=== PATIENT | female | born 1975 | race African-American/Black ===

== ENCOUNTER 2016-09-13 18:23 | Inpatient (IN) | payer OTHER ==
--- NOTE | ~2016-09-13 | EKG ---
PATIENT: IESHA CLINTON UNIT #: [id number] Ventricular Rate: 81 BPM Atrial Rate: 81 BPM P-R Interval: 146 ms QRS Duration: 96 ms Q-T Interval: 388 ms QTC Calculation(Bezet): 450 ms P Bernie: 58 degrees Calculated R Bernie: 0 degrees Calculated T Bernie: 7 degrees Diagnosis Line: Normal sinus rhythm Diagnosis Line: Moderate voltage criteria for LVH, may be normal Diagnosis Line: variant Diagnosis Line: Borderline ECG Diagnosis Line: When compared with ECG of 02-MAY-2016 17:02, Diagnosis Line: No significant change was found Diagnosis Line: Confirmed by MARIAN CAMPBELL MD ([id number]) on Diagnosis Line: 09/15/2016 10:42:47 AM INTERPRETING MD: SONU
--- NOTE | ~2016-09-13 | BMI ---
[facility] Nutrition Therapy DATE: 09/16/16 Patient: IESHA CLINTON Physician: ATTPRE Address: [address] [place] [address] Room/Bed: [address] [place] [address], Zip: [place] [address] Admit Date: 09/14/16 Date of : 75 Height: 5 8 Weight: 548 249 HIGH BMI NOTE: DX: 41 Y.O. FEMALE ADMITTED FOR CHF ANTHROPOMETRICS: 5'8", WT: 562# (255 KG), BMI: 85.4 DIET: TRACIE + 1500 KCAL DIET RECOMMENDATIONS: 1. RECOMMEND TO CHANGE CURRENT DIET ORDER TO: HEALTHY HEART + 2200 KCAL RESTRICTION TO PROMOTE GRADUAL WEIGHT LOSS TOWARDS HEALTHY BMI (19.0-25.0) OR +/-10%IBW 2. DO NOT RECOMMEND 1500 KCAL DIET RESTRICTION-TOO RESTRICTIVE RD WILL F/U PER PROTOCOL Respectfully, NICOLASA HANSON MS, RD, LD Food and Nutritional Services [facility] cc: client file
--- NOTE | ~2016-09-13 | CR72 ---
[facility] A Service of [facility] & [facility] RADIOLOGY TEXT RESULTS PATIENT: IESHA CLINTON LOCATION: [facility] [id number] : 75 UNIT #: [id number] AGE: [address]: Chelle Hernandez MD SEX: F ORDER DR: [id number] [facility] [address] [facility]. [place], [place] [address] [id number] MR#: [id number] Acc #: [id number] NAME: IESHA CLINTON : 1975 SEX: F STUDY DATE/TIME: 09/13/2016 19:52 UNIT: [facility] ROOM: STUDY DESCRIPTION: CR Chest Single View Portable Attending Physician: Nallely Shrestha M.D. Ordering Physician: Hans Villeda M.D. Primary Care Physician: Chelsie Jones M.D. MEDICAL IMAGING REPORT This report is preliminary unless electronic signature is present EXAM Portable chest, 09/13/16. HISTORY Chest pain, shortness of breath and congestive heart failure for 1 week. Benign essential hypertension. FINDINGS There is mild cardiac enlargement. The lungs are clear. Pulmonary vascularity is within normal limits. There are no pleural effusions. IMPRESSION Mild cardiac enlargement. No active pulmonary disease. Dictated by... Danny Pelletier M.D. THIS IS AN ELECTRONICALLY VERIFIED REPORT Danny Pelletier M.D. at 09/16/2016 8:27 AM RANJANA/radha TD: 09/14/2016 00:09 JOB #: [id number] MEDICAL IMAGING REPORT Page 1 of 1 COPY
--- NOTE | ~2016-09-13 | HP ---
Unit #: [id number] #: [id number] Patient: IESHA CLINTON [id number] [address] [address] [id number] I MR#: [id number] NAME: IESHA CLINTON ROOM: 77712 Age: 41 Sex: F Admission Date: 09/14/2016 : 1975 Attending Physician: Chelle Hernandez M.D. Primary Care Physician: Chelsie Jones M.D. HISTORY AND PHYSICAL ADDENDUM ALLERGIES Oxycodone. HOME MEDICATIONS 1. Hydralazine 25 mg p.o. twice a day. 2. Bumex 2 mg p.o. three times a day. 3. Coreg 3.125 mg p.o. twice a day. 4. Losartan 25 mg p.o. at bedtime. 5. Aldactone 25 mg p.o. daily. 6. Albuterol inhaler every four to six hours as needed for shortness of breath. 7. Ceftin 500 mg p.o. twice a day. 8. Symbicort two puffs inhalation twice daily. 9. ProAir MDI two puffs every six hours as needed for shortness of air. 10. Combivent inhaler every six hours as needed for shortness of air. 11. Prednisone 40 mg p.o. daily for seven days. 12. Tylenol 650 mg p.o. every six hours as needed for pain. Dictated by Hien Lawson APRN for Kevin Morris/neeraj TD: 09/14/2016 13:25 JOB #: [id number] HISTORY AND PHYSICAL Page 1 of 1 X X HISTORY AND PHYSICAL
--- NOTE | ~2016-09-13 | HP ---
Unit #: [id number] #: [id number] Patient: IESHA CLINTON [id number] [address] [place], [place] [address] [id number] I MR#: [id number] NAME: IESHA CLINTON ROOM: 24058 Age: 41 Sex: F Admission Date: 09/14/2016 : 1975 Attending Physician: Chelle Hernandez M.D. Primary Care Physician: Chelsie Jones M.D. HISTORY AND PHYSICAL CHIEF COMPLAINT Increased lower extremity swelling with shortness of breath and 32 pound weight gain. HISTORY OF PRESENT ILLNESS This 41-year-old -[place] female well known to Dr. Damian Trent with a longstanding history of morbid obesity and chronic bilateral lower extremity lymphedema with immobility syndrome. She also has a history of chronic diastolic congestive heart failure with an EF 45 to 50% per February 2016 echo, hypertension, hyperlipidemia, obstructive sleep apnea, asthma, arthritis and a history of pulmonary embolism. She presented to the ER with some dyspnea on exertion and a reported 32 pound weight gain in the last month. In addition, she had some PND, wheezing, orthopnea. The patient denies abdominal swelling. The patient denies recent illness or fevers. She states she has adhered to her medication regimen and dietary restrictions. She has been working with home health and doing physical therapy at home. She states she has been unable to wrap her legs as ordered since March due to not being able to obtain the supplies. 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 Chest x-ray in the ER showed mild cardiomegaly but no pulmonary vascular congestion or pleural effusions. She had a cardiac cath in December 2015 at [facility] as part of evaluation for gastric surgery. The cardiac cath was normal. PAST MEDICAL HISTORY 1. Chronic bilateral lower extremity lymphedema. 2. Morbid obesity. 3. Chronic diastolic congestive heart failure with EF 45 to 50% per echo, 02/2016. 4. Hypertension. 5. Hyperlipidemia. 6. Obstructive sleep apnea. 7. History of PE. 8. GERD. 9. Asthma. 10. Osteoarthritis. 11. Cardiac cath 12/20/2015 showed left main normal, LAD large and normal, left circumflex normal, RCA normal, LVEF 55 to 60%. 12. Immobility syndrome. PAST SURGICAL HISTORY 1. . 2. Hysterectomy. Unit #: [id number] #: [id number] Patient: IESHA CLINTON SOCIAL HISTORY The patient lives with her . She has been undergoing home health physical therapy. She normally wraps her legs to help with her lymphedema but has been unable to do so due to inability to obtain proper equipment since March 2016. 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 She denies tobacco use. She denies alcohol or illicit drug use. FAMILY HISTORY Father at age 49 from a pulmonary embolus. Mother had a history of diabetes and hypertension and her sister had a history of hypertension. REVIEW OF SYSTEMS Positive for bilateral lower extremity edema. Positive for shortness of air, dyspnea on exertion, wheezing, orthopnea, PND. The patient denies abdominal swelling. The patient reports bilateral chest discomfort intermittently. The patient denies recent illness, fevers, chills, body aches, nausea, vomiting or diarrhea. Otherwise, negative except for what was stated in the HPI. PHYSICAL EXAMINATION GENERAL APPEARANCE: Morbidly obese -[place] female with limited mobility in no acute distress. VITAL SIGNS: Temperature 98.1. Heart rate 65. Respiratory rate 17. Blood pressure 144/81. Height 68 inches. Weight 261.2 kg. HEENT: Normocephalic and atraumatic. No xanthelasma. Pupils equal, round and reactive to light. LUNGS: Clear to auscultation bilaterally with diminished breath sounds in the bases. Nonlabored respirations. HEART: S1 and S2. Regular rate and rhythm. No obvious murmurs, rubs or gallops. ABDOMEN: Positive bowel sounds. Nondistended and nontender. EXTREMITIES: Legs with multiple skin folds. Lymphedema is present on bilateral lower extremities. Pulses 1+. No cyanosis. DIAGNOSTIC STUDIES LABORATORY: Sodium 136, potassium 3.7, chloride 97, BUN 13, creatinine 0.9, glucose 127, magnesium 1.8. Hemoglobin 11.3, hematocrit 35.2, WBC count 8.9, platelets 263. AST 16, ALT 15, alkaline phosphatase 89. Point of care troponin less than 0.05 and BNP 14. IMAGING: Chest x-ray revealed mild cardiomegaly. No PVC or pleural effusions seen. CARDIOVASCULAR: EKG reveals sinus rhythm with a ventricular rate of 84 and nonspecific T wave abnormalities. ASSESSMENT 1. Acute fluid overload. 2. Acute on chronic systolic and diastolic heart failure; EF 45 to 50% per echo 02/2016. 3. Chronic bilateral lower extremity lymphedema. 4. Hypertension. 5. Hyperlipidemia. 6. Morbid obesity. 7. Obstructive sleep apnea. 8. Asthma. 9. Immobility syndrome. Unit #: [id number] #: [id number] Patient: IESHA CLINTON 10. Cardiac cath, 12/20/2015, with normal coronaries. 11. Hypokalemia. PLAN 1. Continue diuresis with Bumex drip. 2. Optimize medications. Restart home medications. 3. Replace potassium. 4. Strict I and O, daily weight, 1200 mL fluid restriction, low sodium and low calorie 1500 mg diet. 5. BMP and CBC in a.m. 6. She is being worked up for weight loss surgery. 7. Her last echo was done February 2016 with an EF of 45 to 50%. We will not repeat echo at this time. Dictated by Hien Lawson APRN for Kevin Morris TD: 09/14/2016 12:47 JOB #: [id number] HISTORY AND PHYSICAL Page 1 of 1 X X HISTORY AND PHYSICAL
--- NOTE | ~2016-09-13 | DS ---
Unit #: [id number] #: [id number] Patient: IESHA CLINTON [id number] [address] [address] [id number] I MR#: [id number] NAME: IESHA CLINTON ROOM: 578 Age: 41 Sex: F Admission Date: 09/14/2016 : 1975 Discharge Date: 09/16/2016 Attending Physician: Chelle Hernandez M.D. Primary Care Physician: Chelsie Jones M.D. DISCHARGE SUMMARY DISCHARGE DIAGNOSES 1. Acute fluid overload, improved to acute on chronic systolic/diastolic congestive heart failure with ejection fraction 45% to 50% per echocardiogram, February 2016, compensated. 2. Chronic bilateral lower extremity lymph edema. 3. Hypertension. 4. Hyperlipidemia. 5. Morbid obesity. 6. Obstructive sleep apnea. 7. Asthma. 8. Immobility syndrome. DISCHARGE MEDICATIONS 1. Albuterol inhaler q.4-6 hours as needed. 2. Combivent inhaler q.6 hours as needed for shortness of breath. 3. Symbicort inhaler two puffs twice a day. 4. Prednisone 40 mg p.o. daily. 5. Tylenol 650 mg p.o. every six hours as needed for pain. 6. Coreg 6.25 mg p.o. twice a day. 7. Bumex 2 mg p.o. three times a day. 8. Losartan 25 mg p.o. twice a day. 9. Aldactone 25 mg p.o. daily. HISTORY OF PRESENT ILLNESS This is a 41-year-old -[place] female well known to Dr. Damian Trent with a long-standing history of morbid obesity and chronic bilateral extremity lymph edema with immobility syndrome. She also has a history of chronic diastolic congestive heart failure with an EF 45% to 50% per February 2016 echo, hypertension, hyperlipidemia, obstructive sleep apnea, asthma, arthritis, and history of pulmonary embolism. She presented to the ER with dyspnea on exertion and a reported 32-pound weight gain in one month. She reported PND, wheezing, and orthopnea. Chest x-ray in the ER showed mild cardiomyopathy but no pulmonary vascular congestion or pleural effusions. BNP was 14. She was started on a Bumex drip at 1 mg per hour with good urine output response. The Bumex drip was continued into the next day and she continued to have good urine output. Today, her weight is down 12 kg on the Bumex drip. Her fluid status in the last 24 hours is negative 6 L. She has decreased swelling in her lower extremities. She feels much better and wants to go home. She is stable for discharge and will be discharged home. PHYSICAL EXAMINATION VITAL SIGNS: Temperature 98.9, heart rate 73, respiratory rate 18, blood pressure 116/63. Unit #: [id number] #: [id number] Patient: IESHA CLINTON GENERAL: Alert and oriented x3. A 41-year-old -[place] female abed in no acute distress. HEART: S1, S2. Regular rate and rhythm. Distant heart tones. LUNGS: Clear, diminished in bases. ABDOMEN: Soft, nontender, nondistended. EXTREMITIES: Lower extremity edema but significantly decreased. Pulses are palpable. No cyanosis. DIAGNOSTIC STUDIES LABORATORY: Sodium 142, potassium 4.4, chloride 95, BUN 24, creatinine 0.9, glucose 92. Hemoglobin 10.1, hematocrit 31.7, white blood cell count 7.9, platelets 236,000. CARDIOVASCULAR: Telemetry reveals normal sinus rhythm with ventricular rate of 73. DISCHARGE INSTRUCTIONS 1. The patient will be discharged home today. She is to keep her scheduled appointment with Dr. Trent which is set for early September. 2. We will discontinue her hydralazine. 3. We will increase her Coreg to 6.25 mg twice a day. 4. We will increase her Cozaar to 25 mg p.o. twice a day. 5. Continue home dose of Bumex 2 mg p.o. three times a day. Dictated by... Hien Lawson APRN for Kevin Rodriguez TD: 09/17/2016 09:53 JOB #: [id number] DISCHARGE SUMMARY Page 1 of 1 X X DISCHARGE SUMMARY
[~2016-09-13 18:23] MED LIST: ALB/IPRATROPIUM/1 E1 INH; ALBUTEROL2.5 MG/0.5 INH; ALDACTONE25 MG PO; ASPIRIN81 M2 PO; ASPIRIN81 MG PO; AUGMENTIN875 MG PO; BACTROBAN15 GM TOP; BACTROBAN22 GM TOP; BENAZEPRIL PO; BUMETANIDE2 M1 PO; BUMEX1 MG PO; BUMEX2 MG PO; CEFTIN500 MG PO; CLEOCIN HCL300 M1 PO; COREG3.125 MG PO; FERROUS GLUCON324 MG PO; HCTZ PO; HYDRALAZINE HCL50 MG PO; IRON325 ( 652 PO; K-DUR20 ME1 PO; K-TAB ER20 MEQ PO; KEFLEX500 MG PO; LASIX20 MG PO; LOPRESSOR PO; LOSARTAN POTASS25 MG PO; LOTENSIN40 MG PO; MACROBID100 MG PO; MOTRIN600 M1 PO; NORVASC PO; NORVASC10 MG PO; PERIDEX480 ML PO; PHENERGAN25 MG/M1 PO; POTASSIUM CHLO20 ME1 PO; POTASSIUM PO; PREDNISONE PO; PROAIR HFA8.5 GM INH; PYRIDIUM100 MG PO; SPIRONOLAC1 TAB 25/2 PO; SYMBICORT INH; TYLENOL325 M1 PO; VICODIN 5/1 TAB 5/50 PO; WALGREENS PHARMACY
[2016-09-13 19:47] LABS: BASOPHIL% 0.5 % (0-2.5); EOSINOPHIL# 0.1 X10e3 (0-0.7); EOSINOPHIL% 1.5 % (0.0-7.0); HEMATOCRIT 35.2 % (35.0-45.0); HEMOGLOBIN 11.3 gm/dL (12.0-16.0); LYMPHOCYTE# 2.6 X10e3 (1.0-3.5); LYMPHOCYTE% 29.1 % (17.0-45.0); MEAN CELL VOLUME 86.5 FL (83-96); MEAN CORPUSCULAR HEMOGLOBIN 27.8 PG (28-34); MEAN CORPUSCULAR HGB CONC 32.1 g/dL (30-36); MEAN PLATELET VOLUME 9.3 FL (6.5-11.5); MONOCYTE# 0.7 X10e3 (0-1.0); MONOCYTE% 7.4 % (3.0-12.0); NEUTROPHIL# 5.5 X10e3 (1.5-7.1); NEUTROPHIL% 61.5 % (40-75); PLATELET COUNT 263 X10e3 (140-420); RED BLOOD COUNT 4.07 X10e (3.90-5.30); RED CELL DISTRIBUTION WIDTH 15.2 % (11.0-15.5); WHITE BLOOD COUNT 8.9 X10e3 (4.0-10.5)
[2016-09-13 19:50] LABS: DIFF IND NO
[2016-09-13 20:19] LABS: ALBUMIN SERUM 3.8 g/dL (3.5-5.0); ALKALINE PHOSPHATASE 89 U/L (32-92); ALT (SGPT) 15 U/L (10-40); AST (SGOT) 16 U/L (10-42); BILIRUBIN,TOTAL 0.4 mg/dL (0.2-2.0); BLOOD UREA NITROGEN 15 mg/dL (9-23); CALCIUM SERUM 8.8 mg/dL (8.4-10.2); CARBON DIOXIDE 30 mmol/L (22-31); CHLORIDE 98 mmol/L (100-111); CREATININE SERUM 1.2 mg/dL (0.6-1.4); GLUCOSE FASTING 104 mg/dL (70-110); POTASSIUM 3.6 mmol/L (3.5-5.1); PROTEIN TOTAL SERUM 8.4 g/dL (6.0-8.3); SODIUM 136 mmol/L (135-145)
[2016-09-13 20:25] LABS: BILIRUBIN, DIRECT <0.1 mg/dL (0.0-0.2); BILIRUBIN,INDIRECT 0.3 mg/dL (0.0-0.9)
[2016-09-13 22:20] LABS: MAGNESIUM 1.8 mg/dL (1.6-3.0); PHOSPHOROUS 3.5 mg/dL (2.5-4.6)
[2016-09-13 22:25] LABS: POC - CKMB 1.1 ng/mL (0.0-7.9); POC - TROPONIN <0.05 ng/mL (<=0.05)
[2016-09-13 22:52] LABS: POC - CKMB <1.0 ng/mL (0.0-7.9); POC - TROPONIN <0.05 ng/mL (<=0.05)
[2016-09-14 07:44] LABS: BUN/CREATININE RATIO 14.44; CALCIUM SERUM 8.3 mg/dL (8.4-10.2); CREATININE SERUM 0.9 mg/dL (0.6-1.4); GLOM FILT RATE Estimated 92.1 mL/min (>60); POTASSIUM 3.7 mmol/L (3.5-5.1)
[2016-09-15 05:40] LABS: HEMATOCRIT 31.7 % (35.0-45.0); HEMOGLOBIN 10.1 gm/dL (12.0-16.0); MEAN CELL VOLUME 86.1 FL (83-96); MEAN CORPUSCULAR HEMOGLOBIN 27.6 PG (28-34); MEAN CORPUSCULAR HGB CONC 32.1 g/dL (30-36); MEAN PLATELET VOLUME 9.9 FL (6.5-11.5); RED BLOOD COUNT 3.67 X10e (3.90-5.30); RED CELL DISTRIBUTION WIDTH 14.9 % (11.0-15.5); WHITE BLOOD COUNT 7.9 X10e3 (4.0-10.5)
[2016-09-15 06:12] LABS: BUN/CREATININE RATIO 15.55; CALCIUM SERUM 8.3 mg/dL (8.4-10.2); CREATININE SERUM 0.9 mg/dL (0.6-1.4); GLOM FILT RATE Estimated 92.1 mL/min (>60); POTASSIUM 3.5 mmol/L (3.5-5.1)
[2016-09-16 07:26] LABS: BUN/CREATININE RATIO 26.66; CALCIUM SERUM 8.7 mg/dL (8.4-10.2); CREATININE SERUM 0.9 mg/dL (0.6-1.4); GLOM FILT RATE Estimated 92.1 mL/min (>60); POTASSIUM 4.4 mmol/L (3.5-5.1)
== END 2016-09-16 15:43 | disposition home or self-care (01) | DRG 292 ==
LOC: CED 18:23 → CEDOF 09-14 00:20 → C5C 09-14 00:20 → CEDOF 09-14 00:46 → CED 09-14 00:46 → CEDOF 09-14 15:42 → C5B 09-14 15:42 → C5C 09-14 16:13 → C5B 09-14 16:13 → C5C 09-16 15:43
PROVIDERS: Emergency Medicine; Internal Medicine; Internal Medicine Cardiovascular Disease
PROC: 05H333Z Insertion of Infusion Device into Right Innominate Vein, Percutaneous Approach (ICD-10-PCS; principal; 2016-09-14)
DX: I50.43 Acute on chronic combined systolic (congestive) and diastolic (congestive) heart failure (principal); Z68.45 Body mass index [BMI] 70 or greater, adult; I10 Essential (primary) hypertension; E66.01 Morbid (severe) obesity due to excess calories; E78.5 Hyperlipidemia, unspecified; G47.33 Obstructive sleep apnea (adult) (pediatric); J45.909 Unspecified asthma, uncomplicated; M62.3 Immobility syndrome (paraplegic); K21.9 Gastro-esophageal reflux disease without esophagitis; Z86.711 Personal history of pulmonary embolism; M19.90 Unspecified osteoarthritis, unspecified site; Z90.710 Acquired absence of both cervix and uterus; E87.6 Hypokalemia; I89.0 Lymphedema, not elsewhere classified
CPT/HCPCS: 36415; 71010; 80048; 80076; 82553; 82947; 83735; 83880; 84100; 84484; 85025; 85027; 93005; 94640; 94664; 94760; 99285; J2270